=== PATIENT | female | born 1935 ===

== ENCOUNTER → 2017-12-04 | Emergency (ER) | payer OTHER ==
[~2017-12-04] VITALS: Ht 162.6 cm; Wt 70.3 kg
[~2017-12-04] MED LIST: EFFIENT10 MG
== END | disposition home or self-care (01) ==
LOC: ER 13:25
DX: S82.034A Nondisplaced transverse fracture of right patella, initial encounter for closed fracture (principal); S00.83XA Contusion of other part of head, initial encounter; W18.09XA Striking against other object with subsequent fall, initial encounter; Y93.01 Activity, walking, marching and hiking; Y92.413 State road as the place of occurrence of the external cause; Y99.8 Other external cause status